=== PATIENT | male | born 1950 | race Caucasian/White ===

== ENCOUNTER → 2016-11-19 11:12 | Outpatient (CLI) | payer MEDICARE ==
[2010-07-20 07:22] VITALS: BMI 27.1
== END | disposition home or self-care (01) ==
LOC: D.RAD 08:00
DX: C76.0 Malignant neoplasm of head, face and neck (principal)

== ENCOUNTER → 2017-02-16 12:46 | Outpatient (CLI) | payer MEDICARE ==
[2010-07-20 07:22] VITALS: BMI 27.1
== END | disposition home or self-care (01) ==
LOC: D.CT 12:46
DX: R10.9 Unspecified abdominal pain (principal)

== ENCOUNTER → 2018-07-25 10:40 | Outpatient (CLI) | payer MEDICARE ==
[2010-07-20 07:22] VITALS: BMI 27.1
== END | disposition home or self-care (01) ==
LOC: D.MRI 10:40
DX: M75.101 Unspecified rotator cuff tear or rupture of right shoulder, not specified as traumatic (principal)